=== PATIENT | male | born 1955 | race African-American/Black ===

== ENCOUNTER 2021-07-18 07:35 | Day surgery (SDC) | payer OTHER ==
[~2021-07-18] VITALS: Ht 188 cm; Wt 90.7 kg
[2021-07-18 08:01] VITALS: BP 174/82
[2021-07-18] MEDS ORDERED: LIDOCAINE 2% PF 5 ML VIAL. ONE (08:11)
[2021-07-18] MEDS ORDERED: fentaNYL PF VIAL 100 MCG/2 ML VIAL ONE (08:11)
[2021-07-18] MEDS ORDERED: ONDANSETRON PF 4 MG/2 ML VIAL. ONE (08:11)
[2021-07-18] MEDS ORDERED: MIDAZOLAM HCL/PF 2 MG/2 ML VIAL. ONE (08:11)
[2021-07-18] MEDS ORDERED: PROPOFOL 10 MG/ML (20ML) VIAL. IV ONE (08:11)
[2021-07-18] MEDS ORDERED: LOSA-73 PO (08:17)
[2021-07-18] MEDS ORDERED: CARV25TA PO (08:17)
[2021-07-18] MEDS ORDERED: DAPA5TAB PO (08:18)
[2021-07-18] MEDS ORDERED: ASPI-886 PO (08:18)
[2021-07-18] MEDS ORDERED: HYDR-2868 PO (08:19)
[2021-07-18] MEDS ORDERED: INSU100I13 SQ (08:20)
[2021-07-18] MEDS ORDERED: ISOS30TA19 PO (08:20)
[2021-07-18] MEDS ORDERED: IV NORMAL SALINE 1000ML BAG 1,000 ML IV SCH (08:30)
[2021-07-18] MEDS ORDERED: INSULIN LISPRO 100 UNIT/ML 3ML VIAL for OP,RR ONLY. SQ PRN (08:30)
[2021-07-18 08:43] LABS: CALCIUM 8.8 mg/dL (8.5-10.1); CREATININE 5.2 mg/dL (0.7-1.3); GFR 13.6; POTASSIUM 4.8 mmol/L (3.5-5.1)
--- NOTE | 2021-07-18 09:18 | PDOC1 ---
History and Physical Date of Admission Date of Admission DATE: 07/18/21 TIME: 09:16 History of Present Illness History of Present Illness The patient is a 65-year-old male who is referred due to an anterior neck cystic mass. He states that it has been there for a long time and typically does not give him much pain or discomfort. Recently however it has seemed to enlarged. He denies pain, redness, or drainage. Past Medical History Past Medical History Diabetes, coronary artery disease, renal failure Past Surgical History Past Surgical History Pacemaker placement, right arm AV fistula Social History Smoke: Quit ALCOHOL: rare Current Medications Current Medications Current Medications Cefazolin Sodium/ Dextrose 50 ml @ 100 mls/hr 1X PREOP PRN IV PRIOR TO P ROCEDURE; Start 07/18/21 at 06:00; Stop 07/18/21 at 18:00 Propofol (Diprivan) 200 mg STK-MED ONCE IV ; Start 07/18/21 at 08:11; Stop 07/18/21 at 08:11; Status DC Lidocaine HCl (Lidocaine Pf 2% Vial) 5 ml STK-MED ONCE .ROUTE ; Start 07/18/21 at 08:11; Stop 07/18/21 at 08:11; Status DC Ondansetron HCl (Zofran) 4 mg STK-MED ONCE .ROUTE ; Start 07/18/21 at 08:11; Stop 07/18/21 at 08:11; Status DC Fentanyl Citrate (Fentanyl 2ml Vial) 100 mcg STK-MED ONCE .ROUTE ; Start 07/18/21 at 08:11; Stop 07/18/21 at 08:11; Status DC Midazolam HCl (Versed) 2 mg STK-MED ONCE .ROUTE ; Start 07/18/21 at 08:11; Stop 07/18/21 at 08:11; Status DC Insulin Human Lispro (HumaLOG VIAL for OP,RR ONLY) 0-10 units PRN Q1HR PRN SQ PER PROTOCOL; Start 07/18/21 at 08:30; Stop 07/19/21 at 08:29 Sodium Chloride 1,000 ml @ 30 mls/hr Q24H IV Last administered on 07/18/21at 08:33; Start 07/18/21 at 08:30 Active Scripts Active Reported Lantus Solostar (Insulin Glargine,Hum.rec.anlog) 100 Unit/1 Ml Insuln.pen 6 Unit SQ HS Isosorbide Dinitrate 30 Mg Tablet 20 Mg PO DAILY Hydralazine Hcl 25 Mg Tablet 1 Tab PO TID Aspirin Ec (Aspirin) 81 Mg Tablet.dr 1 Tab PO DAILY Farxiga (Dapagliflozin Propanediol) 5 Mg Tablet 5 Mg PO DAILY Losartan Potassium 50 Mg Tablet 50 Mg PO DAILY Coreg (Carvedilol) 25 Mg Tablet 25 Mg PO BIDWMEALS Allergies Allergies: Coded Allergies: No Known Drug Allergies (Unverified , 07/18/21) ROS General: No: Chills, Night Sweats, Fatigue, Malaise, Appetite, Other PSYCHOLOGICAL ROS: No: Anxiety, Behavioral Disorder, Concentration difficultie, Decreased libido, Depression, Disorientation, Hallucinations, Hostility, Irritablity, Memory difficulties, Mood Swings, Obsessive thoughts, Physical abuse, Sexual abuse, Sleep disturbances, Suicidal ideation, Other Eyes: No Blurry vision, No Decreased vision, No Double vision, No Dry eyes, No Excessive tearing, No Eye Pain, No Itchy Eyes, No Loss of vision, No Photophobia, No Scotomata, No Uses contacts, No Uses glasses, No Other HEENT: No: Heacaches, Visual Changes, Hearing change, Nasal congestion, Nasal discharge, Oral lesions, Sinus pain, Sore Throat, Epistaxis, Sneezing, Snoring, Tinnitus, Vertigo, Vocal changes, Other ALLERGY AND IMMUNOLOGY: No: Hives, Insect Bite Sensitivity, Itchy/Watery Eyes, Nasal Congestion, Post Nasal Drip, Seasonal Allergies, Other Hematological and Lymphatic: No: Bleeding Problems, Blood Clots, Blood Transfusions, Brusing, Night Sweats, Pallor, Swollen Lymph Nodes, Other ENDOCRINE: No: Breast Changes, Galactorrhea, Hair Pattern Changes, Hot Flashes, Malaise/lethargy, Mood Swings, Palpitations, Polydipsia/polyuria, Skin Changes, Temperature Intolerance, Unexpected Weight Changes, Other Respiratory: No: Cough, Hemoptysis, Orthopnea, Pleuritic Pain, Shortness of breath, SOB with excertion, Sputum Changes, Stridor, Tachypnea, Wheezing, Other Cardiovascular: No Chest Pain, No Palpitations, No Orthopnea, No Paroxysmal Noc. Dyspnea, No Edema, No Lt Headedness, No Other Gastrointestinal: No Nausea, No Vomiting, No Abdominal Pain, No Diarrhea, No Constipation, No Melena, No Hematochezia, No Other Genitourinary: No Dysuria, No Frequency, No Incontinence, No Hematuria, No Retention, No Discharge, No Urgency, No Pain, No Flank Pain, No Other, No , No , No , No , No , No , No Musculoskeletal: No Gait Disturbance, No Joint Pain, No Joint Stiffness, No Joint Swelling, No Muscle Pain, No Muscular Weakness, No Pain In:, No Swelling In:, No Other Neurological: No Behavorial Changes, No Bowel/Bladder ControlChng, No Confusion, No Dizziness, No Gait Disturbance, No Headaches, No Impaired Coord/balance, No Memory Loss, No Numbness/Tingling, No Seizures, No Speech Problems, No Tremors, No Visual Changes, No Weakness, No Other Skin: No Dry Skin, No Eczema, No Hair Changes, No Lumps, No Mole Changes, No Mottling, No Nail Changes, No Pruritus, No Rash, No Skin Lesion Changes, No Other, No Acne Physical Exam General: Alert, Oriented X3, Cooperative HEENT: Atraumatic, Other (Anterior neck there is a 2 cm cystic-appearing superficial mass) Lungs: Clear to auscultation Heart: S1S2, RRR Abdomen: Soft, No tenderness Rectal Exam: not examined Extremities: No clubbing, No cyanosis, Other (Right AV fistula present) Skin: No rashes Neuro: Normal speech, Strength at 5/5 X4 ext Psych/Mental Status: Mental status NL Vitals Vitals Vital Signs Date Time Temp Pulse Resp B/P (MAP) Pulse Ox O2 Delivery O2 Flow Rate FiO2 07/18/21 08:07 97.2 70 18 174/82 100 Room Air 97.2 Labs Labs Laboratory Tests Test 07/18/21 07:00 07/18/21 08:04 07/18/21 08:24 POC SARS CoV-2 Antigen Negative (NEGATIVE) Sodium Level 141 mmol/L (136-145) Potassium Level 4.8 mmol/L (3.5-5.1) Chloride Level 109 mmol/L (98-107) Carbon Dioxide Level 22 mmol/L (21-32) Anion Gap 10 (6-14) Blood Urea Nitrogen 59 mg/dL (8-26) Creatinine 5.2 mg/dL (0.7-1.3) Estimated GFR (Cockcroft-Gault) 13.6 Glucose Level 124 mg/dL (70-99) Calcium Level 8.8 mg/dL (8.5-10.1) Glucose (Fingerstick) 120 mg/dL (70-99) Laboratory Tests Test 07/18/21 07:00 07/18/21 08:04 07/18/21 08:24 POC SARS CoV-2 Antigen Negative (NEGATIVE) Sodium Level 141 mmol/L (136-145) Potassium Level 4.8 mmol/L (3.5-5.1) Chloride Level 109 mmol/L (98-107) Carbon Dioxide Level 22 mmol/L (21-32) Anion Gap 10 (6-14) Blood Urea Nitrogen 59 mg/dL (8-26) Creatinine 5.2 mg/dL (0.7-1.3) Estimated GFR (Cockcroft-Gault) 13.6 Glucose Level 124 mg/dL (70-99) Calcium Level 8.8 mg/dL (8.5-10.1) Glucose (Fingerstick) 120 mg/dL (70-99) VTE Prophylaxis Ordered VTE Prophylaxis Devices: No VTE Pharmacological Prophylaxi: No Assessment/Plan Assessment/Plan Anterior neck mass, likely epidermal cyst. Given the enlargement plan is for excision. The details and risks of surgery were discussed with the patient. He understands and would like to proceed. Justifications for Admission Other Justification JHONATAN WOOTEN MD Jul 18, 2021 09:18
[2021-07-18] MEDS ORDERED: LIDOCAINE 1%/EPI 1:100,000 20 ML VIAL. ONE (09:34)
--- NOTE | 2021-07-18 10:39 | PDOC4 ---
Operative Note Operative Note Operative Note: Preoperative Diagnosis: Anterior neck cyst Postoperative Diagnosis: Same Procedure: Excision of anterior neck cyst, 3 x 1 cm Surgeon: Ted [employer] Operator: LILIA Morales Anesthesia: Local MAC EBL: 10 mL Specimen: Neck cyst to pathology Drains: None Complications: None Indication: The patient is a 65-year-old male who has an enlarging anterior neck cyst. He requests excision. The risks of surgery were discussed which include bleeding, infection, pain, recurrence, anesthetic risk, potential need for additional surgery procedure. He understands and would like to proceed. Description: The patient was taken the operating room and placed supine on the operating table. Monitored anesthesia care was provided. The anterior neck was prepped with ChloraPrep and draped in a standard surgical manner. 1% lidocaine with epinephrine was used to infiltrate the skin. An elliptical incision was made around the cyst with a scalpel. Sharp dissection was used for complete excision of the cyst and the surrounding sac. This was mobilized from the surr ounding subcutaneous tissues with sharp dissection. The cystic structure was fully excised and measured 3 x 1 cm. This was sent to pathology for evaluation. Hemostasis was achieved with cautery. The subcutaneous tissue was closed with 3-0 Vicryl. Skin was approximated with 4 Monocryl. A sterile dressing was then applied. The patient tolerated the procedure well and was sent to the recovery room in stable condition. At the end of the case all counts were correct. JHONATAN WOOTEN MD Jul 18, 2021 10:39
--- NOTE | 2021-07-18 10:41 | DISCH ---
DISCHARGE INSTRUCTIONS Condition on Discharge Condition on Discharge: Unstable Activity After Discharge Activity Instructions for Disc: Activity as tolerated Diet after Discharge Diet after Discharge: Regular Wound Incision Care Wound/Incision Care: Other, see below (keep dressing clean and dry X 72 hours, may then remove and shower) Follow-Up Follow up with: Dr Wooten in 2 weeks in office, call for appointment [phone] JHONATAN WOOTEN MD Jul 18, 2021 10:41
[2021-07-18 11:25] VITALS: BP 141/78
--- NOTE | 2021-07-19 17:07 | PATHOLOGY ---
[facility] Accession Number: [id number] . 01 Material submitted: . neck - NECK CYST . 02 Diagnosis: Skin and subcutaneous tissue, neck cyst excision: - Epidermal inclusion cyst. (JPM:ralf; 07/19/2021) S 07/19/2021 1345 Local . 02 Comment: There is no evidence of malignancy. (JPM:ralf; 07/19/2021) . 02 Electronically signed: . Slava Padilla MD, Pathologist NPI- [id number] . 01 Gross description: . The specimen is received in formalin, labeled "Victorino King, neck cyst". Received is an ellipse of villeda anders-brown skin with attached soft tissue measuring 2.1 x 1.3 x 1.4 cm in greatest dimensions. Sectioning reveals a unilocular cystic structure measuring 1.5 cm filled with anders-brown fluid and friable material. The specimen is submitted representatively in cassette A1. ([facility]; 07/18/2021) QAC/QAC 07/19/2021 1344 Local . 02 Pathologist provided ICD-10: L72.0 . 02 CPT . 385705 Specimen Comment: A courtesy copy of this report has been sent to [phone], [phone] Specimen Comment: [id number] Specimen Comment: Report sent to / DR JOSÉ Specimen Comment: A duplicate report has been generated due to demographic updates. Performed at: 01 [facility] [address] [id number] MD Rodger Raphael MD Phone: [phone] Performed at: [address] [facility] [address] [place], [place] [id number] MD Slava Padilla MD Phone: [phone]
== END 2021-07-18 11:57 | disposition home or self-care (01) ==
LOC: SURG 07:35
PROVIDERS: ATTEND Surgery
DX: L72.0 Epidermal cyst (principal); I12.9 Hypertensive chronic kidney disease with stage 1 through stage 4 chronic kidney disease, or unspecified chronic kidney disease; E11.22 Type 2 diabetes mellitus with diabetic chronic kidney disease; N18.9 Chronic kidney disease, unspecified; E78.00 Pure hypercholesterolemia, unspecified; J44.9 Chronic obstructive pulmonary disease, unspecified; Z79.82 Long term (current) use of aspirin; Z79.4 Long term (current) use of insulin; Z79.899 Other long term (current) drug therapy; Z98.890 Other specified postprocedural states
CPT/HCPCS: 11423; 36415; 80048; 82962; A4930; A6219; J0690; J2250; J2405; J2704; J3010; J3490